=== PATIENT | male | born 1965 | race African-American/Black ===

== ENCOUNTER 2024-05-12 08:28 | Emergency (ER) | payer BC, OTHER ==
[2024-05-12] MEDS ORDERED: Lidocaine 1% PF 5 ML VIAL ONE (09:14)
== END 2024-05-12 09:52 | disposition home or self-care (01) ==
LOC: BURERS 08:28
DX: S01.111A Laceration without foreign body of right eyelid and periocular area, initial encounter (principal); W22.8XXA Striking against or struck by other objects, initial encounter; Y93.89 Activity, other specified
CPT/HCPCS: 12011; 99283